=== PATIENT | male | born 1960 | race Caucasian/White ===

== ENCOUNTER 2018-03-18 14:04 | Inpatient (IN) | END 2018-03-26 14:37 | DRG 493 ==

== ENCOUNTER 2018-03-26 14:56 | Inpatient (IN) | END 2018-04-02 15:00 | disposition home health service (06) | DRG 561 ==

== ENCOUNTER → 2018-04-17 | Outpatient (CLI) | END | disposition home or self-care (01) ==

== ENCOUNTER → 2018-05-08 | Outpatient (CLI) | END | disposition home or self-care (01) ==

== ENCOUNTER → 2018-06-05 | Outpatient (CLI) | payer BC ==
[~2018-06-05] MED LIST: ENOX40DI2 SC
--- NOTE | 2018-06-05 15:14 | RADRPT ---
PROCEDURE: XR Right Ankle. CLINICAL INDICATION: Right ankle pain. TECHNIQUE: 3 views. Frontal, lateral, and oblique. COMPARISON: May 08, 2018. FINDINGS: There has been previous open reduction and internal fixation of the tibia with a imer in the shaft, ce rclage wires, and distal screws. There is no acute fracture and there is no dislocation. The soft tissues are normal. Articular surfaces are intact. There is no lytic or blastic lesion. IMPRESSION: 1. Satisfactory postoperative appearance of the distal. 2. Otherwise unremarkable images of the right ankle. RPTAT: QQ .Rian Osborne MD, MD Date Time Electronically viewed and signed by .Rian Osborne MD, on 06/05/2018 15:13 .R/
--- NOTE | 2018-06-05 15:15 | RADRPT ---
PROCEDURE: XR Right Tibia and Fibula. CLINICAL INDICATION: Right lower leg pain. TECHNIQUE: Two views. Frontal and lateral. COMPARISON: May 08, 2018. FINDINGS: There has been previous open reduction and internal fixation of the tibia with a imer in the shaft, ce rclage wires, proximal screws, and distal screws. Healing fractures are noted with satisfactory align ment. There is a fracture of the proximal neck of the fibula as seen previously. There is no acute fr acture and there is no dislocation. The soft tissues are normal. Articular surfaces are intact. There is no lytic or blastic lesion. IMPRESSION: 1. Satisfactory postoperative appearance of the right tibia. 2. Otherwise unremarkable images of the right tibia and fibula. RPTAT: QQ .Rian Osborne MD, Date Time Electronically viewed and signed by .Rian Osborne MD, on 06/05/2018 15:15 .R/
--- NOTE | 2018-06-05 16:31 | CONS ---
Consult Date/Type/Reason Admit Date/Time Initial Consult Date Date/Time of Note DATE: 06/05/18 TIME: 16:21 Subjective 58-year-old male 11 weeks status post open reduction internal fixation and intramedullary nailing of right comminuted tibia fracture with extension into the plafond. His postop course was complicated by cholecystitis which subsequently became infected and he currently has a drain in place. He has remained nonweightbearing in his right lower extremity as instructed. He has been doing range of motion exercises with physical therapy. Denies any fevers or chills. States pain in the leg is improving. He is very fearful to put any weight on the leg. He has a venous ultrasound scheduled for next week to evaluate for DVT in his right lower extremity. he had a previous venous duplex that showed a below popliteal venous thrombosis. He is on Eliquis. Objective Exam General: Awake, alert, in no acute distress, pleasant and cooperative Heart: regular rhythm Lungs: breathing comfortably, no tachypnea or dyspnea Musculoskeletal: Right lower extremity: Incisions are healed and clean, dry, and intact, no erythema. There is minimal to no swelling along the tibia and calf and thigh. There is moderate swelling of the foot. Range of motion of the ankles severely limited by stiffness. Sensation intact to light touch in a sural, saphenous, deep peroneal, superficial peroneal, medial and lateral plantar nerve distribution. Motor is intact, patient able to dorsiflex and plantarflex ankle and extend and flex great toe. Dorsalis Pedis pulse +2, Brisk capillary refill. Compartments are soft. Calves non-tender to palpation bilaterally. Results/Medications Results 24 hrs AP and lateral of the right tibia and fibula and 3 views of the right ankle were obtained today and personally reviewed. Comminuted tibia fracture with extension into plafond and status post fixation with intramedullary imer, cerclage wires, screws. Fracture reduction maintained in anatomic alignment. There is signs of healing. The fracture line into the plafond and is fainter and narrower. There is no loosening of hardware. Prominent lag screw is again appreciated. No change. There is no complication. Home Meds Active Scripts Enoxaparin Sodium* (Enoxaparin Sodium*) 40 Mg/0.4 Ml Syringe, 40 MG SC DAILY for 28 Days, #30 Prov:MARY CHENG MD 03/23/18 Assessment/Plan Hospital Course (Demo Recall) Patient is 11 weeks status post ORIF and intramedullary nailing of right tibial fracture with extension into the plafond. He is to begin in [address] partial weightbearing on his right lower extremity. Approximately 15-20 pounds Active and passive range of motion as tolerated of the foot ankle and knee continue. Continue physical therapy with home health. Jamesonis Per physician's recommendation. Requesting patient to bring in the ultrasound report so I can review that personally. Follow-up in 3 weeks with 2 views of the right tibia and 3 views of the right ankle. If x-rays are good we will progress him to approximately 50% weightbearing. Because of the physical nature of his job he likely will not be able to return to full duty for another 2-3 months. TRACEY FRENCH MD Jun 05, 2018 16:31
== END | disposition home or self-care (01) ==
LOC: HKI 10:07
PROVIDERS: ATTEND Orthopaedic Surgery Adult Reconstructive Orthopaedic Surgery
DX: S82.201D Unspecified fracture of shaft of right tibia, subsequent encounter for closed fracture with routine healing (principal); X58.XXXD Exposure to other specified factors, subsequent encounter

== ENCOUNTER → 2018-07-03 | Outpatient (CLI) | payer BC ==
--- NOTE | 2018-07-03 12:57 | CONS ---
Consult Date/Type/Reason Admit Date/Time Initial Consult Date Date/Time of Note DATE: 07/03/18 TIME: 12:51 Subjective Subjective 58-year-old male 15 weeks status post open reduction internal fixation and intramedullary nailing of right comminuted tibia fracture with extension into the plafond. His postop course was complicated by cholecystitis which subsequently became infected. He just had the drain removed as it was clotted. He has remained 50% weightbearing as instructed on the right lower extremity. He has been doing range of motion exercises with physical therapy. Denies any fevers or chills. States pain in the leg is improving. 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 he had a previous venous duplex that showed a below popliteal venous thrombosis. He is on Eliquis. Objective Exam General: Awake, alert, in no acute distress, pleasant and cooperative Heart: regular rhythm Lungs: breathing comfortably, no tachypnea or dyspnea Musculoskeletal: Right lower extremity: Incisions are healed and clean, dry, and intact, no erythema. There is minimal to no swelling along the tibia and calf and thigh. There is minimal swelling of the foot. Range of motion of the ankles severely limited by stiffness dorsiflexion to about -5 degrees. Sensation intact to light touch in a sural, saphenous, deep peroneal, sup erficial peroneal, medial and lateral plantar nerve distribution. Motor is intact, patient able to dorsiflex and plantarflex ankle and extend and flex great toe. Dorsalis Pedis pulse +2, Brisk capillary refill. Compartments are soft. Calves non-tender to palpation bilaterally. Results/Medications Home Meds Active Scripts Enoxaparin Sodium* (Enoxaparin Sodium*) 40 Mg/0.4 Ml Syringe, 40 MG SC DAILY for 28 Days, #30 Prov:MARY CHENG MD 03/23/18 Imaging AP and lateral of the right tibia and fibula and 3 views of the right ankle were obtained today and personally reviewed. Comminuted tibia fracture with extension into plafond and status post fixation with intramedullary imer, cerclage wires, screws. Fracture reduction maintained in anatomic alignment. There is signs of healing. The fracture line into the plafond and is fainter and narrower. There is no loosening of hardware. Prominent lag screw is again appreciated. No change. There is no complication. Assessment/Plan Hospital Course (Demo Recall) Patient is 15 weeks status post ORIF and intramedullary nailing of right tibial fracture with extension into the plafond. He is to begin to slowly weightbearing as tolerated with a walker. He is to use pain as his guide. Active and passive range of motion as tolerated of the foot ankle and knee continue. Continue physical therapy with home health. Eliquis Per physician's recommendation. From an orthopedic standpoint he can stop taking Eliquis in order to have his cholecystectomy. The length of treatment and restarting the Eliquis is per the primary care physician. Follow-up in 3 weeks with 2 views of the right tibia and 3 views of the right ankle. If x-rays are good we will continue to progress him forward. Because of the physical nature of his job he likely will not be able to return to full duty until the beginning of August. TRACEY FRENCH MD Jul 03, 2018 12:57
--- NOTE | 2018-07-03 16:52 | RADRPT ---
PROCEDURE: XR Right Tibia and Fibula. CLINICAL INDICATION: Right lower leg pain. TECHNIQUE: Two views. Frontal and lateral. COMPARISON: 06/05/2018. FINDINGS: There is an intramedullary imer in the tibia with 2 locking screws proximally, 3 locking screws distal ly, and a 4 cerclage wires in the mid and distal shaft. In addition, 2 cannulated screws are noted in the distal tibial metaphysis. Alignment of a fracture of the mid to distal shaft is satisfactory and healing is progressing. There is a healing fracture of the proximal neck of the fibula. There is no other fracture and there is no dislocation. There is no lytic or blastic lesion. IMPRESSION: 1. Satisfactory postoperative images of the right tibia and fibula. RPTAT: QQ .Rian Osborne MD, Date Time Electronically viewed and signed by .Rian Osborne MD, on 07/03/2018 16:51 .R/
--- NOTE | 2018-07-03 16:58 | RADRPT ---
PROCEDURE: XR Right Ankle. CLINICAL INDICATION: Right ankle pain. TECHNIQUE: 3 views. Frontal, lateral, and oblique. COMPARISON: 06/05/2018. FINDINGS: There is a imer in the shaft of the tibia with 3 locking screws distally. 4 cerclage wires are present around the shaft of the tibia. There is a healing fracture of the mid to distal shaft of the tibia w ith satisfactory alignment. There is no new fracture and there is no dislocation. 2 cannulated screws are also present in the distal metaphysis of the tibia. The soft tissues are normal. Articular surfaces are intact. There is no lytic or blastic lesion. IMPRESSION: 1. Satisfactory postoperative images of the right ankle. RPTAT: QQ .Rian Osborne MD, MD Date Time Electronically viewed and signed by .Rian Osborne MD, on 07/03/2018 16:58 .R/
== END | disposition home or self-care (01) ==
LOC: HKI 09:15
PROVIDERS: ATTEND Orthopaedic Surgery Adult Reconstructive Orthopaedic Surgery
DX: S82.251D Displaced comminuted fracture of shaft of right tibia, subsequent encounter for closed fracture with routine healing (principal); X58.XXXD Exposure to other specified factors, subsequent encounter
CPT/HCPCS: G0463

== ENCOUNTER → 2018-07-28 | Outpatient (CLI) | payer BC ==
--- NOTE | 2018-07-29 08:31 | RADRPT ---
PROCEDURE: Right leg series CLINICAL INDICATION: Pain TECHNIQUE: AP and lateral views of the right leg were obtained COMPARISON: Right leg series 07/03/2018 FINDINGS: Right tibial intramedullary fixation imer with proximal and distal fixation screws as well a cerclage wires that appear unremarkable. Healed mid-right tibial and proximal fibular fractures. No acute frac tures or dislocations. No focal bony blastic or lytic lesions. Soft tissues are unremarkable. IMPRESSION: 1. Unremarkable fixation of the right tibia with healed mid-right tibial and proximal fibular fractu res. RPTAT:AAJJ Physician Fran Date Time Electronically viewed and signed by Physician Fran on 07/29/2018 08:30 /
--- NOTE | 2018-07-29 08:32 | RADRPT ---
PROCEDURE: Right ankle seen CLINICAL INDICATION: Pain TECHNIQUE: AP, lateral and oblique images right ankle were obtained COMPARISON: Right ankle series 07/03/2018 FINDINGS: There is fixation imer and cerclage wires involving the distal right tibia incompletely visualized and are unremarkable. Fixation screws involving the distal right tibia unremarkable and unchanged. Heale d distal right tibial fracture. No other fractures or dislocation. No focal bony blastic or lytic les ion. Soft tissues are unremarkable. IMPRESSION: Unremarkable fixation of the distal right tibia with a healed distal right tibial fracture. No acute fractures or dislocations. RPTAT:AAJJ Physician Fran Date Time Electronically viewed and signed by Anita Francis Physician on 07/29/2018 08:31 BM/
--- NOTE | 2018-07-29 20:51 | CONS ---
Consult Date/Type/Reason Admit Date/Time Initial Consult Date Date/Time of Note DATE: 07/29/18 TIME: 20:47 Subjective 58-year-old male 19 weeks status post open reduction internal fixation and intramedullary nailing of right comminuted tibia fracture with extension into the plafond. His postop course was complicated by cholecystitis which subsequently became infected. H at last visit he was made weightbearing as tolerated. He has been improving using a walker. However he does feel that he is progressing slowly. He has been doing range of motion exercises with physical therapy. Denies any fevers or chills. States pain in the leg is improving. Patient states that he is unable to undergo a cholecystectomy secondary to the blood clot. 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 He had a previous venous duplex that showed a below popliteal venous thrombosis. He is on Eliquis. Objective Exam General: Awake, alert, in no acute distress, pleasant and cooperative Heart: regular rhythm Lungs: breathing comfortably, no tachypnea or dyspnea Musculoskeletal: Right lower extremity: Incisions are healed and clean, dry, and intact, no erythema. There is minimal to no swelling along the tibia and calf and thigh. There is minimal swelling of the foot. Range of motion of the ankles severely limited by stiffness d orsiflexion to about -5 degrees. Sensation intact to light touch in a sural, saphenous, deep peroneal, superficial peroneal, medial and lateral plantar nerve distribution. Motor is intact, patient able to dorsiflex and plantarflex ankle and extend and flex great toe. Dorsalis Pedis pulse +2, Brisk capillary refill. Compartments are soft. Calves non-tender to palpation bilaterally. Results/Medications Home Meds Active Scripts Enoxaparin Sodium* (Enoxaparin Sodium*) 40 Mg/0.4 Ml Syringe, 40 MG SC DAILY for 28 Days, #30 Prov:MARY CHENG MD 03/23/18 Imaging Imaging AP and lateral of the right tibia and fibula and 3 views of the right ankle were obtained today and personally reviewed. Comminuted tibia fracture with extension into plafond and status post fixation with intramedullary imer, cerclage wires, screws. Fracture reduction maintained in anatomic alignment. There are signs of healing. The fracture line into the plafond and is fainter and narrower. There is no loosening of hardware. Prominent lag screw is again appreciated. No change. There is no complication. Assessment/Plan Hospital Course (Demo Recall) Patient is 19 weeks status post ORIF and intramedullary nailing of right tibial fracture with extension into the plafond. He is making progress since he has been weightbearing as tolerated. However he still having significant pain in his mobilization is taking a little longer than expected. This is especially complicated since he had other medical issues and also needs to undergo a cholecystectomy. Active and passive range of motion as tolerated of the foot ankle and knee continue. Continue physical therapy with home health. Eliquis Per physician's recommendation. From an orthopedic standpoint he can stop taking Eliquis in order to have his cholecystectomy. The length of pamela atment and restarting the Eliquis is per the primary care physician. Follow-up in 4 weeks with 2 views of the right tibia and 3 views of the right ankle. If x-rays are good we will continue to progress him forward. Because of the physical nature of his job he likely will not be able to return to full duty until the beginning of September which is a month longer than initially anticipated. TRACEY FRENCH MD Jul 29, 2018 20:51
== END | disposition home or self-care (01) ==
LOC: HKI 15:26
PROVIDERS: ATTEND Orthopaedic Surgery Adult Reconstructive Orthopaedic Surgery
DX: I82.431 Acute embolism and thrombosis of right popliteal vein (principal); Z79.01 Long term (current) use of anticoagulants
CPT/HCPCS: 73590; 73610; G0463

== ENCOUNTER → 2018-09-01 | Outpatient (CLI) | payer BC ==
--- NOTE | 2018-09-01 16:44 | CONS ---
Consult Date/Type/Reason Admit Date/Time Initial Consult Date Date/Time of Note DATE: 09/01/18 TIME: 16:38 Subjective 58-year-old male here for 5-month follow-up status post open reduction internal fixation and intramedullary nail of right tibia fracture with extension into the plafond. Since last visit he has been putting more weight on his leg. States he is mostly putting 85% of weight. At times he can walk without his walker for short distances. However of note he has increased pain in the last couple weeks over the medial side of the tibia. This is extremely painful hypersensitive type sensation. It is painful with even a bedsheet rubbing over the skin. Denies fevers and chills. States he continues to have swelling in the foot. He complains of color changes as well. Secondary to this and inability to bear full weight and carry heavy equipment he is concerned that he is unable to return to work in September as scheduled. Objective Vitals Weight: 140 pound Height: 5 foot 2 inches Temperature: 98.4 Heart Rate: 79 Blood Pressure: 121/78 Respiratory Rate: 12 Exam General: Awake, alert, in no acute distress, pleasant and cooperative Heart: regular rhythm Lungs: breathing comfortably, no tachypnea or dyspnea Musculoskeletal: Right lower extremity: Incisions are healed and clean, dry, and intact, no erythema. There is tenderness to light touch along the medial tibia. There is minimal to no swelling along the tibia and calf and thigh. There is mild to moderate swelling of the foot. Range of motion of the ankles severely limited by stiffness dorsiflexion to about neutral. Sensation intact to light touch in a sural, saphenous, deep peroneal, superficial peroneal, medial and lateral plantar nerve distribution. Motor is intact, patient able to dorsiflex and plantarflex ankle and extend and flex great toe. Dorsalis Pedis pulse +2, Brisk capillary refill. Compartments are soft. Calves non-tender to palpation bilaterally. Results/Medications Home Meds Active Scripts Enoxaparin Sodium* (Enoxaparin Sodium*) 40 Mg/0.4 Ml Syringe, 40 MG SC DAILY for 28 Days, #30 Prov:MARY CHENG MD 03/23/18 Imaging AP and lateral of the right tibia and fibula and 3 views of the right ankle were obtained today and personally reviewed. Comminuted tibia fracture with extension into plafond and status post fixation w ith intramedullary imer, cerclage wires, screws. Fracture reduction maintained in anatomic alignment. There are signs of healing. The fracture line into the plafond and is fainter and narrower. There is no loosening of hardware. Prominent lag screw is again appreciated. No change. There is no complication. Assessment/Plan Hospital Course (Demo Recall) Patient is 5 months status post ORIF and intramedullary nailing of right tibial fracture with extension into the plafond. He is making progress since he has been weightbearing as tolerated. However he still having significant pain in his mobilization is taking a little longer than expected. His new pain symptoms can potentially be consistent with complex regional pain syndrome. His skin is hypersensitive to the lightest touch including brushing his skin with a finger or with a bedsheet. He complains of swelling in the foot and color changes at times. At this time I would like to start him on gabapentin 300 mg nightly. I would like him to go to occupational therapy for desensitization modalities to treat his complex regional pain syndrome symptoms. If his symptoms persist at the time of the next visit I will likely refer him to pain management for further evaluation and treatment. Active and passive range of motion as tolerated of the foot ankle and knee continue. Eliquis Per physician's recommendation. From an orthopedic standpoint he can stop taking Eliquis in order to have his cholecystectomy. The length of bakari tment and restarting the Eliquis is per the primary care physician. Follow-up in 6 weeks with 2 views of the right tibia and 3 views of the right ankle. If x-rays are good we will continue to progress him forward. Because of the physical nature of his job he likely will not be able to return to full duty until 3 months. TRACEY FRENCH MD Sep 01, 2018 16:44
--- NOTE | 2018-09-02 16:28 | RADRPT ---
PROCEDURE: XR Right Ankle. CLINICAL INDICATION: Right ankle pain. TECHNIQUE: 3 views. Frontal, lateral, and oblique. COMPARISON: 07/28/2018. FINDINGS: There is fixation imer and cerclage wires involving the distal right tibia incompletely visualized and are unremarkable. Fixation screws involving the distal right tibia unremarkable and unchanged. Heale d distal right tibial fracture. No other fractures or dislocation. No focal bony blastic or lytic les ion. Soft tissues are unremarkable. IMPRESSION: 1. Satisfactory appearance of open reduction and internal fixation of the distal tibia. 2. No change from the 07/28/2018 images of the right ankle. RPTAT: QQ .Rian Osborne MD, MD Date Time Electronically viewed and signed by .Rian Osborne MD, MD on 09/02/2018 16:27 .R/
--- NOTE | 2018-09-02 16:29 | RADRPT ---
PROCEDURE: XR Right Tibia and Fibula. CLINICAL INDICATION: Right lower leg pain. TECHNIQUE: Two views. Frontal and lateral. COMPARISON: 07/28/2018. FINDINGS: Right tibial intramedullary fixation imer with proximal and distal fixation screws as well a cerclage wires that appear unremarkable. Healed mid-right tibial and proximal fibular fractures. No acute frac tures or dislocations. No focal bony blastic or lytic lesions. Soft tissues are unremarkable. IMPRESSION: 1. Satisfactory postoperative appearance of the right tibia and fibula. 2. No change from 07/28/2018 images of the right tibia and fibula. RPTAT: QQ .Rian Osborne MD, MD Date Time Electronically viewed and signed by .Rian Osborne MD, MD on 09/02/2018 16:28 .R/
== END | disposition home or self-care (01) ==
LOC: HKI 15:13
PROVIDERS: ATTEND Orthopaedic Surgery Adult Reconstructive Orthopaedic Surgery
DX: Z47.1 Aftercare following joint replacement surgery (principal); S82.201G Unspecified fracture of shaft of right tibia, subsequent encounter for closed fracture with delayed healing; X58.XXXD Exposure to other specified factors, subsequent encounter
CPT/HCPCS: 73590; 73610; G0463

== ENCOUNTER → 2018-10-13 | Outpatient (CLI) | payer BC ==
--- NOTE | 2018-10-13 11:03 | CONS ---
Consult Date/Type/Reason Admit Date/Time Initial Consult Date Date/Time of Note DATE: 10/13/18 TIME: 10:41 Subjective 58-year-old male here for 6-month follow-up status post open reduction internal fixation and intramedullary nail of right tibia fracture with extension into the plafond. Since last visit he has been putting more weight on his leg. States he is mostly putting 100% of weight. He continues to use a walker for long distances. He continues to complain of significant pain along the medial aspect of his tibia. At last appointment there was concern for complex regional pain syndrome in addition to possible irritation from cerclage cables. He was prescribed occupational therapy for desensitization modalities. Unfortunately he did not start the therapy secondary to miscommunication and confusion of where to go for this therapy. He has started the gabapentin and states it does help somewhat. Overall he does state he has had some improvement although significantly slower than he hoped. Denies fevers and chills. States he continues to have swelling in the foot. He complains of color changes as well. Secondary to this and inability to bear full weight and carry heavy equipment he is concerned that he is unable to return to work in September as scheduled Objective Vitals Weight: 140 pounds Height: 5 foot 2 inches Temperature: 90.6 Heart Rate: 80 Blood Pressure: 126/78 Respiratory Rate: 12 Exam General: Awake, alert, in no acute distress, pleasant and cooperative Heart: regular rhythm Lungs: breathing comfortably, no tachypnea or dyspnea Musculoskeletal: Right lower extremity: Incisions are healed and clean, dry, and intact, no erythema. There is tenderness to light touch along the medial tibia. There is minimal to no sw elling along the tibia and calf and thigh. There is mild to moderate swelling of the foot. Range of motion of the ankles severely limited by stiffness dorsiflexion to about neutral. Sensation intact to light touch in a sural, saphenous, deep peroneal, veliz perficial peroneal, medial and lateral plantar nerve distribution. Motor is intact, patient able to dorsiflex and plantarflex ankle and extend and flex great toe. Dorsalis Pedis pulse +2, Brisk capillary refill. Compartments are soft. Calves non-tender to palpation bilaterally. Results/Medications Home Meds Active Scripts Enoxaparin Sodium* (Enoxaparin Sodium*) 40 Mg/0.4 Ml Syringe, 40 MG SC DAILY for 28 Days, #30 Prov:MARY CHENG MD 03/23/18 Imaging AP and lateral of the right tibia and fibula and 3 views of the right ankle were obtained today and personally reviewed. Comminuted tibia fracture with extension into plafond and status post fixation with intramedullary imer, cerclage wires, screws. Fracture reduction maintained in anatomic alignment. There are signs of healing. The fracture line into the plafond and is fainter and narrower. There is no loosening of hardware. Prominent lag screw is again appreciated. No change. There is no complication. Assessment/Plan Hospital Course (Demo Recall) Patient is 6 months status post ORIF and intramedullary nailing of right tibial fracture with extension into the plafond. Unfortunately the patient did not go to occupational therapy for desensitization for possible CRPS. This was due to misunderstanding. He is fortunately making some progress although very slow. His skin is hypersensitive to the lightest touch including brushing his skin with a finger or with a bedsheet. He complains of swelling in the foot and color changes at times. At this time I would like him to continue gabapentin 300 mg nightly. I would like him to go to occupational therapy for desensitization modalities to treat his complex regional pain syndrome symptoms. If his symptoms persist at the time of the next visit we will likely obtain a CT scan to evaluate for healing and possible removal of cerclage cables versus refer him to pain management for further evaluation and treatment. Active and passive range of motion as tolerated of the foot ankle and knee continue. Follow-up in 6 weeks with 2 views of the right tibia and 3 views of the right ankle. If x-rays are good we will continue to progress him forward. Because of the physical nature of his job he likely will not be able to return to full duty until 3 months. TRACEY FRENCH MD Oct 13, 2018 11:03
--- NOTE | 2018-10-13 16:56 | RADRPT ---
PROCEDURE: XR Right Tibia and Fibula. CLINICAL INDICATION: Right lower leg pain. TECHNIQUE: Two views. Frontal and lateral. COMPARISON: 09/01/2018. FINDINGS: There has been open reduction and internal fixation with a imer in the shaft of the tibia, 2 locking s crews proximally, and 3 locking screws distally. In addition, 2 screws are present in the distal tibi al epiphysis and there are 4 cerclage wires around the distal shaft of the tibia. Alignment is satisf actory and there is solid bony union. There is also an old healed fracture of the lateral malleolus a nd the proximal neck of the fibula. There is no new fracture and there is no dislocation. Articular surfaces are intact. There is no lytic or blastic lesion. Soft tissues are grossly normal. IMPRESSION: 1. Solid bony union following open reduction and internal fixation of the tibia. 2. No new fracture. 3. Otherwise unremarkable images of the right tibia and fibula. RPTAT: QQ .Rian Osborne MD, MD Date Time Electronically viewed and signed by .Rian Osborne MD, on 10/13/2018 16:56 .R/
--- NOTE | 2018-10-13 16:58 | RADRPT ---
PROCEDURE: XR Right Ankle. CLINICAL INDICATION: Right ankle pain. TECHNIQUE: 3 views. Frontal, lateral, and oblique. COMPARISON: 09/01/2018. FINDINGS: There has been open reduction and internal fixation with a imer in the shaft of the tibia and 3 lockin g screws distally. In addition, 2 screws are present in the distal tibial epiphysis and there are 4 c erclage wires around the distal shaft of the tibia. Alignment is satisfactory and there is solid bony union. There is also an old healed fracture of the lateral malleolus. There is no new fracture and there is no dislocation. Articular surfaces are intact. There is a plantar calcaneal spur. There is no lytic or blastic lesion. Soft tissues are grossly normal. IMPRESSION: 1. Solid bony union following open reduction and internal fixation of the tibia. 2. No new fracture. 3. Plantar calcaneal spur. 4. Otherwise unremarkable images of the right tibia and fibula. RPTAT: QQ .Rian Osborne MD, MD Date Time Electronically viewed and signed by .Rian Osborne MD, on 10/13/2018 16:58 .R/
== END | disposition home or self-care (01) ==
LOC: HKI 08:48
PROVIDERS: ATTEND Orthopaedic Surgery Adult Reconstructive Orthopaedic Surgery
DX: S82.201D Unspecified fracture of shaft of right tibia, subsequent encounter for closed fracture with routine healing (principal); X58.XXXD Exposure to other specified factors, subsequent encounter
CPT/HCPCS: 73590; 73610; G0463